=== PATIENT | female | born 1980 | race Caucasian/White ===

== ENCOUNTER → 2017-01-05 | Day surgery (SDC) | payer OTHER ==
[~2017-01-05] MED LIST: ACETAMINOPHEN 1000 MG/100 ML VIAL IV ONE; BACITRACIN IM FOR SOLN 50,000 UNIT VIAL ONE; BUPIVACAINE/EPINEPHRINE 0.25% PF 30 ML VIAL ONE; GENTAMICIN SULFATE 80 MG/2 ML VIAL ONE; LACTATED RINGER'S 1000 ML INJ 1,000 ML ONE; LIDOCAINE 1%/EPINEPHrine 1:100,000 SOLN 30 ML VIAL ONE; MEPERIDINE HCL 25 MG/ML VIAL ONE; MEPERIDINE HCL 50 MG/ML VIAL ONE; MIDAZOLAM HCL 2 MG/2 ML VIAL ONE; ONDANSETRON HCL 4 MG/2 ML VIAL IV PUSH ONE; PROPOFOL 200 MG/20 ML AMP IV ONE; SODIUM CHLORIDE 0.9% 20 ML VIAL ONE; ceFAZolin INJ 1,000 MG VIAL ONE
--- NOTE | 2017-01-05 09:48 | TN ---
cc: FORREST WINSTON M.D. DATE OF SURGERY: 01/05/2017 PREOPERATIVE DIAGNOSIS History of ptosis and lateralization / herniation of breast implant laterally with deformity and unhappiness. PROCEDURE: Correction of deformity and single vertical mastopexy SURGEON Forrest Winston MD. ANESTHESIA LMA general. ESTIMATED BLOOD LOSS: Minimal. COMPLICATIONS None. DRAINS: None. PROCEDURE IN DETAIL: She was properly consented, marked, properly anesthetized the skin was sterilized with Betadine solution, sterile draping applied. Local anesthetic was utilized as a breast block for a grand total of 15 cc per breast, combination of 1% lidocaine with mixed with 0.25% Marcaine at 2:1 ratio. The nipple-areolar complex was isolated from the beginning with Tegaderm. The markings as follow the NAC was kept at 42 mm areolar diameter and the distance from sternal notch about 19-1/2 cm's. With this utilizing an infra-areolar vertical incision, the pocket was properly found finding that the patient have pretty much fully attached the inferomedial fibers of the pectoralis major muscle. With this I released the dose two minimize the inferior lateral piston affect. After the implant was properly removed, was kept in a sterile container with antibiotic solution, lateral capsulorrhaphies were done utilizing 0-silk and down to the anterior axillary line to correct the significant herniation of the implant. The superomedial capsulotomies were done where needed. After isolating the skin the same implant was introduced finding no evidence of problems with the implant itself. The wounds were closed and utilizing multiple 2-0 Monocryl suture layers, of the capsule, dermis and Subcu. With this I proceeded to sit up the patient and tailor tack technique was placed to reassess the envelope now of the skin. This properly marked and de-epithelialized and closure was done as follows, the vertical horizontal component was done utilizing 2-0 Monocryl suture in dermis and Subcu. The nipple-areolar complex was closed utilizing a pinwheel technique utilizing 2-0 PTFE suture reinforced with 2-0 quill. Preno Dermabond was utilized as mesh glue to reinforce the dressings for the skin. Excellent viability of the nipple-areolar complex on the tissue was noted at the end of the case. The patient was awakened, extubated in the operating room she was transferred back to postanesthesia care unit in stable conditions. No complications appreciated. The patient tolerated procedure fairly well. MD FAISAL Suh/danay /9:25 AM /9:41 AM
== END | disposition home or self-care (01) ==
LOC: ESDC 06:24
PROVIDERS: ATTEND Plastic Surgery
DX: Z41.1 Encounter for cosmetic surgery (principal)
CPT/HCPCS: 00402; 19316; J0131; J0690; J1580; J2175; J2250; J2405; J3010; J7120